=== PATIENT | female | born 1980 | race Two or more races ===

== ENCOUNTER 2017-11-02 08:24 | Outpatient (CLI) | payer OTHER | END 2017-11-02 08:46 | disposition home or self-care (01) | LOC: RAD 501 08:24 | DX: M54.5 Low back pain (principal); M51.17 Intervertebral disc disorders with radiculopathy, lumbosacral region ==

== ENCOUNTER 2017-11-09 08:58 | Outpatient (CLI) | payer OTHER | END 2017-11-09 09:11 | disposition home or self-care (01) | LOC: MRI 08:58 | DX: M54.5 Low back pain (principal) | CPT/HCPCS: 72148 ==